=== PATIENT | male | born 1930 | race Caucasian/White ===

== ENCOUNTER → 2017-10-03 | Outpatient (CLI) | payer OTHER ==
[~2017-10-03] MED LIST: ADULT LOW DOSE81 MG PO; COLACE 100 MG100 MG PO; FIORICET 50-301 EACH PO; MULTIVITAMINS PO; NIACIN 500 MG500 M1 PO; NORCO 5-325 TA1 EACH PO; TAMSULOSIN HCL0.4 M1 PO; VERAPAMIL ER240 MG PO; ZYRTEC 10 MG TA10 MG PO
--- NOTE | ~2017-10-03 | 24HR ---
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 The study duration was 24 hours and the technical quality was good. 2. Predominant rhythm sinus rhythm at an average heart rate of 61 bpm, range 39-100 bpm. Longest RR interval 2.2 seconds. 3. No episodes of atrial fibrillation or atrial flutter. Rare, isolated atrial premature complexes one of which was blocked. No SVT. No heart block. 4. Occasional, isolated premature ventricular complexes. One ventricular couplet. No episodes of ventricular tachycardia. 5. No symptoms reported. Electronically Signed On 10-05-2017 8:10:10 CDT by Ankush Saldaña [email or web address] <ELECTRONICALLY SIGNED> By: Ankush Saldaña MD, [facility] 10/05/17 0810 1300 1300 Ankush Saldaña MD, [facility] /EPI
== END ==
LOC: CV 10:58
DX: R00.1 Bradycardia, unspecified (principal)